=== PATIENT | female | born 1950 | race African-American/Black ===

== ENCOUNTER → 2017-08-15 | Outpatient (CLI) | payer BC ==
[2015-06-18 12:33] VITALS: BP 130/79
--- NOTE | 2017-08-15 09:30 | RAD ---
DATE: 08/15/2017 EXAM: DIGITAL SCREEN LT W/CAD HISTORY: Routine screening. History of right mastectomy . COMPARISON: Previous study from 08/09/2016 This study was interpreted with the benefit of Computerized Aided Detection (CAD). FINDINGS: Breast Density: HETERO The breast parenchyma Is heterogeneously dense, which could reduce sensitivity of mammography. Breast parenchyma level C. The skin and nipples are within normal limits. No suspicious calcifications, spiculated masses or areas of architectural distortion. Benign calcification noted. IMPRESSION: No mammographic evidence of malignancy. Stable mammogram. BI-RADS CATEGORY: 2 BENIGN FINDING(S) RECOMMENDED FOLLOW-UP: 12M 12 MONTH FOLLOW-UP PQRS compliance statement: Patient information was entered into a reminder system with a target due date 08/15/2018 for the next mammogram. Mammography is a sensitive method for finding small breast cancers, but it does not detect them all and is not a substitute for careful clinical examination. A negative mammogram does not negate a clinically suspicious finding and should not result in delay in biopsying a clinically suspicious abnormality. "Our facility is accredited by the [employer] Mammography Program."
== END | disposition home or self-care (01) ==
LOC: MAMMO 08:54
PROVIDERS: ATTEND Family Medicine
DX: Z12.31 Encounter for screening mammogram for malignant neoplasm of breast (principal)
CPT/HCPCS: G0202; 77067

== ENCOUNTER 2017-12-22 05:45 | Emergency (ER) | payer BC, MEDICARE ==
[2017-12-22] MEDS: ONDANSETRON PF 4 MG/2 ML VIAL. IV (06:25)
[2017-12-22] MEDS: IV NORMAL SALINE 500ML BAG 500 ML IV ×2 (06:25→07:07)
[2017-12-22 06:26] LABS: ADD MAN DIFF? NO
[2017-12-22 06:37] LABS: ANION GAP 12 (6-14); BLOOD UREA NITROGEN 19 mg/dL (7-20); BUN/CREATININE RATIO 17 (6-20); CALCIUM 9.4 mg/dL (8.5-10.1); CARBON DIOXIDE 27 mmol/L (21-32); CHLORIDE 101 mmol/L (98-107); CREATININE 1.1 mg/dL (0.6-1.0); GFR 59.6; GLUCOSE 145 mg/dL (70-99); POTASSIUM 3.4 mmol/L (3.5-5.1); SODIUM 140 mmol/L (136-145)
[2017-12-22 06:39] LABS: BASO % 1 % (0-3); EOS % 1 % (0-3); HEMATOCRIT 39.4 % (36.0-47.0); HEMOGLOBIN 12.8 g/dL (12.0-15.5); LYMPH # 1.7 x10^3/uL (1.0-4.8); LYMPH % 40 % (24-48); MEAN CORPUSCULAR HEMOGLOBIN 28 pg (25-35); MEAN CORPUSCULAR HGB CONC 33 g/dL (31-37); MEAN CORPUSCULAR VOLUME 85 fL (79-100); MONO # 0.4 x10^3/uL (0.0-1.1); MONO % 8 % (0-9); NEUT # 2.2 x10^3uL (1.8-7.7); NEUT % 50 % (31-73); PLATELET COUNT 286 x10^3/uL (140-400); RED BLOOD COUNT 4.61 x10^6/uL (3.50-5.40); WHITE BLOOD COUNT 4.4 x10^3/uL (4.0-11.0)
[2017-12-22 06:42] LABS: ALBUMIN 4.1 g/dL (3.4-5.0); ALBUMIN/GLOBULIN RATIO 1.1 (1.0-1.7); ALK PHOS 71 U/L (46-116); ALT (SGPT) 30 U/L (14-59); AST (SGOT) 21 U/L (15-37); TOTAL BILIRUBIN 0.6 mg/dL (0.2-1.0); TOTAL PROTEIN 7.9 g/dL (6.4-8.2)
== END 2017-12-22 07:46 | disposition home or self-care (01) ==
LOC: ER 05:45
DX: R11.2 Nausea with vomiting, unspecified (principal); R19.7 Diarrhea, unspecified; I10 Essential (primary) hypertension; E87.6 Hypokalemia; R10.9 Unspecified abdominal pain; E03.9 Hypothyroidism, unspecified; Z90.11 Acquired absence of right breast and nipple; Z90.710 Acquired absence of both cervix and uterus; Z96.659 Presence of unspecified artificial knee joint
CPT/HCPCS: 36415; 80053; 85025; 96361; 96374; 99284-25; J2405; J7040

== ENCOUNTER 2018-06-07 06:12 | Emergency (ER) | payer BC, MEDICARE ==
[~2018-06-07] VITALS: Ht 162.6 cm; Wt 72.6 kg
[~2018-06-07 06:12] MED LIST: ONDA4TAB7 PO
[2018-06-07 06:41] LABS: BASO # 0.1 x10^3/uL (0.0-0.2); BASO % 2 % (0-3); EOS # 0.1 x10^3/uL (0.0-0.7); EOS % 2 % (0-3); HEMATOCRIT 37.4 % (36.0-47.0); HEMOGLOBIN 12.7 g/dL (12.0-15.5); LYMPH # 2.2 x10^3/uL (1.0-4.8); LYMPH % 53 % (24-48); MEAN CORPUSCULAR HEMOGLOBIN 29 pg (25-35); MEAN CORPUSCULAR HGB CONC 34 g/dL (31-37); MEAN CORPUSCULAR VOLUME 86 fL (79-100); MONO # 0.4 x10^3/uL (0.0-1.1); MONO % 9 % (0-9); NEUT # 1.4 x10^3uL (1.8-7.7); NEUT % 35 % (31-73); PLATELET COUNT 283 x10^3/uL (140-400); RED BLOOD COUNT 4.37 x10^6/uL (3.50-5.40); RED CELL DISTRIBUTION WIDTH 14.6 % (11.5-14.5); WHITE BLOOD COUNT 4.1 x10^3/uL (4.0-11.0)
--- NOTE | 2018-06-07 06:54 | PHYS DOC ---
Past Medical History Past Medical History: Hypertension, Hypothyroid Additional Past Medical Histor: BREAST CANCER 1992, Past Surgical History: Cancer Surgery, Hysterectomy, Knee Replacement, Other Additional Past Surgical Histo: RIGHT MASTECTOMY 1993,WRIST, ANKLE. Alcohol Use: Occasionally Drug Use: None Adult General Chief Complaint Chief Complaint: nausea with a few episodes of vomiting and loose stools. HPI HPI This is a pleasant 67-year-old female with a remote history of uterine cancer status post hysterectomy and a history of breast cancer s/p treatment many years ago who presents today with nausea and vomiting since 5:00 this morning. She denies any sick contacts. She hasn't had about 4-5 nonbilious nonbloody episodes of emesis. She denies fevers or chills. She denies any abdominal pain chest pain or shortness of breath. Review of systems is negative for chest pain shortness of breath fevers chills headache neck stiffness or back pain. All other review of systems is negative unless otherwise noted in history of present illness. ED course: 67-year-old female presenting with nausea and vomiting since 5 AM. On arrival she is afebrile with a normal heart rate. On examination she is well- appearing with a nondistended soft abdomen. Bowel sounds present. No rebound tenderness or guarding. Negative McBurney's point. Negative Norton sign. Remainder the exam is unremarkable as below. Blood work obtained along with IV fluid administration and antiemetics therapy. CT abdomen pelvis obtained. CT shows no acute findings. Lesion in the liver identified. Patient reports seeing this 26 years ago when she was worked up for her uterine cancer. I recommend she follow up with her doctor in 3-4 days and they can get an outpatient MR of the lesion to identify the etiology. Otherwise blood work shows mild increase in creatinine. Patient feels much better on reexamination approximately 10:30 to 1045. Abdomen is soft and nontender. Patient would like to be discharged home. Will discharge patient home to follow-up with PCP in 2-3 days. She will need a repeat creatinine tested at that time. She is told to return if she continues to have vomiting or feels worse.The patient has been examined and was not found to have an emergency medical condition. The patient was then discharged home in stable condition to follow up with their primary care physician over the next 2-3 days. They were to return if their symptoms worsened or if they were concerned for any reason. They were also instructed to return to the emergency department if they were unable to get the recommended and appropriate follow-up. [id number] discharge instructions and return precautions were given. Patient's questions were answered to their satisfaction. Patient is comfortable with plan. Review of Systems Review of Systems SEE ABOVE. Current Medications Current Medications Current Medications Medications (Trade) Dose Ordered Sig/Jyoti Start Time Stop Time Status Last Admin Dose Admin Info (CONTRAST GIVEN -- Rx MONITORING) 1 each PRN DAILY PRN 06/07/18 08:00 06/09/18 07:59 Iohexol (Omnipaque 300 Mg/ml) 75 ml 1X ONCE 06/07/18 07:45 06/07/18 07:47 DC 06/07/18 07:45 75 ML Ondansetron HCl (Zofran) 4 mg 1X ONCE 06/07/18 07:00 06/07/18 07:01 DC 06/07/18 07:04 4 MG Sodium Chloride 500 ml @ 500 mls/hr 1X ONCE 06/07/18 08:00 06/07/18 08:59 DC 06/07/18 08:05 500 MLS/HR Allergies Allergies Allergies Coded Allergies Type Severity Reaction Last Updated Verified No Known Drug Allergies 12/22/17 No Physical Exam Physical Exam SEE ABOVE Constitutional: Well developed, well nourished, no acute distress, non-toxic appearance. HENT: Normocephalic, atraumatic, bilateral external ears normal, oropharynx moist, no oral exudates, nose normal. [] Eyes: PERRLA, EOMI, conjunctiva normal, no discharge. Neck: Normal range of motion, no tenderness, supple, no stridor. Cardiovascular:Heart rate regular rhythm, no murmur Lungs & Thorax: Bilateral breath sounds clear to auscultation [] Abdomen: Bowel sounds normal, soft, no tenderness, no masses, no pulsatile masses. Skin: Warm, dry, no erythema, no rash. [] Back: No tenderness, no CVA tenderness. Extremities: No tenderness, no cyanosis, no clubbing, ROM intact, no edema. Neurologic: Alert and oriented X 3, normal motor function, normal sensory function, no focal deficits noted. [] Psychologic: Affect normal, judgement normal, mood normal. Current Patient Data Vital Signs Vital Signs Date Time Temp Pulse Resp B/P (MAP) Pulse Ox O2 Delivery O2 Flow Rate FiO2 06/07/18 09:56 83 18 134/64 (87) 97 Room Air 06/07/18 06:12 98.0 98.0 Lab Values Laboratory Tests Test 06/07/18 06:29 06/07/18 07:20 06/07/18 08:15 White Blood Count 4.1 x10^3/uL (4.0-11.0) Red Blood Count 4.37 x10^6/uL (3.50-5.40) Hemoglobin 12.7 g/dL (12.0-15.5) Hematocrit 37.4 % (36.0-47.0) Mean Corpuscular Volume 86 fL (79-100) Mean Corpuscular Hemoglobin 29 pg (25-35) Mean Corpuscular Hemoglobin Concent 34 g/dL (31-37) Red Cell Distribution Width 14.6 % (11.5-14.5) H Platelet Count 283 x10^3/uL (140-400) Neutrophils (%) (Auto) 35 % (31-73) Lymphocytes (%) (Auto) 53 % (24-48) H Monocytes (%) (Auto) 9 % (0-9) Eosinophils (%) (Auto) 2 % (0-3) Basophils (%) (Auto) 2 % (0-3) Neutrophils # (Auto) 1.4 x10^3uL (1.8-7.7) L Lymphocytes # (Auto) 2.2 x10^3/uL (1.0-4.8) Monocytes # (Auto) 0.4 x10^3/uL (0.0-1.1) Eosinophils # (Auto) 0.1 x10^3/uL (0.0-0.7) Basophils # (Auto) 0.1 x10^3/uL (0.0-0.2) Sodium Level 142 mmol/L (136-145) Potassium Level 3.5 mmol/L (3.5-5.1) Chloride Level 105 mmol/L (98-107) Carbon Dioxide Level 26 mmol/L (21-32) Anion Gap 11 (6-14) Blood Urea Nitrogen 17 mg/dL (7-20) Creatinine 1.4 mg/dL (0.6-1.0) H Estimated GFR (Cockcroft-Gault) 45.1 BUN/Creatinine Ratio 12 (6-20) Glucose Level 114 mg/dL (70-99) H Calcium Level 10.0 mg/dL (8.5-10.1) Total Bilirubin 0.3 mg/dL (0.2-1.0) Aspartate Amino Transferase (AST) 18 U/L (15-37) Alanine Aminotransferase (ALT) 22 U/L (14-59) Alkaline Phosphatase 74 U/L (46-116) Troponin I Quantitative < 0.017 ng/mL (0.000-0.055) Total Protein 7.1 g/dL (6.4-8.2) Albumin 3.8 g/dL (3.4-5.0) Albumin/Globulin Ratio 1.2 (1.0-1.7) Lipase 172 U/L (73-393) Urine Collection Type Unknown Urine Color Yellow Urine Clarity Clear Urine pH 8.0 Urine Specific [place] 1.020 Urine Protein Negative mg/dL (NEG-TRACE) Urine Glucose (UA) Negative mg/dL (NEG) Urine Ketones (Stick) Negative mg/dL (NEG) Urine Blood Negative (NEG) Urine Nitrite Negative (NEG) Urine Bilirubin Negative (NEG) Urine Urobilinogen Dipstick 1.0 mg/dL (0.2 mg/dL) Urine Leukocyte Esterase Trace (NEG) Urine RBC 0 /HPF (0-2) Urine WBC 1-4 /HPF (0-4) Urine Squamous Epithelial Cells Mod /LPF Urine Amorphous Sediment Present /HPF Urine Bacteria Few /HPF (0-FEW) Laboratory Tests 06/07/18 06:29 Laboratory Tests 06/07/18 07:20 EKG EKG EKG reviewed by myself shows sinus rhythm with regular rate. ST segments are congruent. Not suggestive of ACS.[] Radiology/Procedures Radiology/Procedures [] Course & Med Decision Making Course & Med Decision Making Pertinent Labs and Imaging studies reviewed. (See chart for details) [] Dragon Disclaimer Dragon Disclaimer This electronic medical record was generated, in whole or in part, using a voice recognition dictation system. Departure Departure Impression: Primary Impression: Nausea and vomiting Additional Impression: Diarrhea Disposition: 01 HOME, SELF-CARE Condition: STABLE Referrals: DENNIS GLASER MD (PCP) Additional Instructions: Thank you for allowing us to participate in your care today. Return to the emergency department you have any new or worsening symptoms, or if you are concerned for any reason. Return to emergency department if you have any new or concerning symptoms including but not limited to fever, chills, nausea, vomiting, intractable pain, any new rashes, chest pain, shortness of air , uncontrolled bleeding, difficulty breathing, and/or vision loss. Follow up with your primary care physician within 3 days. Call your Primary Doctor tomorrow and inform them of your visit today. If you do not have a primary care provider we are happy to provide you with a list of our primary care providers contact information. This condition should be evaluated by your primary care physician and any recommended consulting services for continued management within 2-3 days after discharge. If at any time, you are having difficulty getting into your primary care doctor or a specialist, return to the emergency department. Problem Qualifiers RANDY PETE MD Jun 07, 2018 06:54
[2018-06-07] MEDS ORDERED: IV NORMAL SALINE 500ML BAG 500 ML IV ONE ×2 (07:00→08:00)
[2018-06-07] MEDS ORDERED: ONDANSETRON PF 4 MG/2 ML VIAL. IV ONE (07:00)
--- NOTE | 2018-06-07 07:22 | EKG ---
[facility] [address] [place] [address] Test Date: 2018-06-07 Test Time: 06:44:41 Pat Name: VALERI DOUGLAS Department: Room: Gender: F Physiotherapy Aide: : 1950 Requested By: RANDY PETE Order Number: [id number] Reading MD: Tad Perez MD Measurements Intervals [place] Rate: 85 P: 61 AL: 154 QRS: 55 QRSD: 70 T: 46 QT: 342 QTc: 412 Interpretive Statements SINUS RHYTHM Electronically Signed On 06-07-2018 8:12:15 CDT by Tad Perez MD
[2018-06-07 07:43] LABS: ALBUMIN 3.8 g/dL (3.4-5.0); ALBUMIN/GLOBULIN RATIO 1.2 (1.0-1.7); CREATININE 1.4 mg/dL (0.6-1.0); GFR 45.1; POTASSIUM 3.5 mmol/L (3.5-5.1); TOTAL BILIRUBIN 0.3 mg/dL (0.2-1.0); TOTAL PROTEIN 7.1 g/dL (6.4-8.2)
[2018-06-07] MEDS ORDERED: IOHEXOL 300 MG/ML 100ML VIAL. IV ONE (07:45)
[2018-06-07] MEDS ORDERED: CONTRAST GIVEN. MC PRN (08:00)
[2018-06-07 08:32] LABS: BILIRUBIN,URINE NEGATIVE (NEG); CLARITY,URINE CLEAR; COLOR,URINE YELLOW; NITRITE,URINE NEGATIVE (NEG); PROTEIN,URINE NEGATIVE (NEG-TRACE)
[2018-06-07 08:42] LABS: AMORPHOUS SEDIMENT,UR PRESENT /HPF; BACTERIA,URINE FEW /HPF (0-FEW); RBC,URINE 0 /HPF (0-2); SQUAMOUS EPITHELIAL CELL,UR MOD /LPF
[2018-06-07 09:56] VITALS: BP 134/64
--- NOTE | 2018-06-07 10:27 | RAD ---
CT abdomen and pelvis with contrast History: Nausea, abdominal pain Technique: After the administration of intravenous contrast, CT imaging was performed of the abdomen and pelvis. No oral contrast was given as per request. Multiplanar images are reviewed. Exposure: One or more of the following individualized dose reduction techniques were utilized for this examination: 1. Automated exposure control 2. Adjustment of the mA and/or kV according to patient size 3. Use of iterative reconstruction technique. Contrast: 60 cc Omnipaque 300 Comparison: None Findings: There is no abnormality of the limited visualized lung bases. There is a 1.1 cm hypodense lesion posteriorly of the right lobe of the liver closer to the dome, density measurements not of a simple cyst at 50 Hounsfield units. Gallbladder is present without obvious intraluminal abnormality by CT. No focal abnormality is identified of the pancreas or spleen. There is no adrenal nodularity. Both kidneys enhance, no hydronephrosis. Evaluation of bowel is limited without oral contrast. Bowel is not significantly dilated. There is some stool retention in segments of the colon greatest of the right through transverse colon. Normal appendix is visualized. There is no free air or free fluid. There is minimal fat in the inguinal canals greater on the left, no bowel. There is more advanced degenerative disc disease L3-4 and to a somewhat lesser degree at L4-5 with spondylosis greatest L3-4. There is probable mild lateral recess stenosis bilaterally at L3-4. There is at least mild neural foramina compromise on the right at L3-4 and L4-5 and on the left at L3-4. Impression: 1. There is no CT evidence of acute appendicitis or evidence of small bowel obstruction. There is retained stool in segments of the colon. 2. There is indeterminate hypodense lesion of the right lobe of the liver closer to the dome, more accurately characterized with nonemergent MR. Electronically signed by: Navid Bynum MD (06/07/2018 10:23 AM) [id number]
== END 2018-06-07 11:10 | disposition home or self-care (01) ==
LOC: ER 06:12
DX: R11.2 Nausea with vomiting, unspecified (principal); R19.7 Diarrhea, unspecified; I10 Essential (primary) hypertension; E03.9 Hypothyroidism, unspecified; Z90.710 Acquired absence of both cervix and uterus; Z96.659 Presence of unspecified artificial knee joint; Z90.11 Acquired absence of right breast and nipple
CPT/HCPCS: 36415; 74177; 80053; 81001; 83690; 84484; 85025; 87086; 93005; 96361; 96374; 99285; J2405; J7040; Q9967; 99284

== ENCOUNTER 2019-12-25 04:31 | Emergency (ER) | payer BC, MEDICARE ==
[~2019-12-25] VITALS: Ht 162.6 cm; Wt 70.5 kg
[2019-12-25] MEDS ORDERED: FAMOTIDINE 20 MG/2 ML VIAL IVP ONE (04:45)
[2019-12-25] MEDS ORDERED: ONDANSETRON PF 4 MG/2 ML VIAL. IVP ONE ×2 (04:45→06:00)
[2019-12-25] MEDS ORDERED: IV NORMAL SALINE 1000ML BAG 1,000 ML IV ONE ×2 (04:45→06:45)
--- NOTE | 2019-12-25 04:59 | PHYS DOC ---
Past Medical History Past Medical History: Cancer (Breast), Hypertension, Hypothyroid (MARSHA OLIVA DO) Past Surgical History: Cancer Surgery, Hysterectomy, Knee Replacement, Other Additional Past Surgical Histo: RIGHT MASTECTOMY 1993,WRIST, ANKLE. TRAM FLAP (MARSHA OLIVA DO) Smoking Status: Never Smoker Alcohol Use: Occasionally Drug Use: None (MARSHA OLIVA DO) Adult General Chief Complaint Chief Complaint: ABDOMINAL PAIN HPI HPI 69-year-old female presents with several week history of abdominal pain which has been worse primarily to left lower quadrant. Reports some associated nausea and vomiting. Denies constipation or diarrhea. Patient was seen by her PCP yesterday and thought to have diverticulitis. Patient was started on empiric antibiotics. Patient reports this morning the pain was more significant and therefore presents to the ER for evaluation. Denies fever or chills. Denies known sick contacts. Denies trauma. Patient denies history of diverticulitis. Reports last colonoscopy was in 2010 and was "normal". (MARSHA OLIVA DO) Review of Systems Review of Systems Constitutional: Denies fever or chills; reports malaise Eyes: Denies redness or eye pain HENT: Denies nasal congestion or sore throat Respiratory: Denies cough or shortness of breath Cardiovascular: Denies chest pain or palpitations GI: Reports abdominal pain, nausea, and vomiting; denies diarrhea or constipation : Denies dysuria or hematuria Musculoskeletal: Denies back pain or joint pain Integument: Denies rash or skin lesions Neurologic: Denies headache, focal weakness or sensory changes Complete systems were reviewed and found to be within normal limits, except as documented in this note. (MARSHA OLIVA DO) Current Medications Current Medications Current Medications Medications (Trade) Dose Ordered Sig/Jyoti Start Time Stop Time Status Last Admin Dose Admin Famotidine (Pepcid Vial) 20 mg 1X ONCE 12/25/19 04:45 12/25/19 04:46 DC 12/25/19 05:09 20 MG Famotidine (Pepcid) 20 mg 1X ONCE 12/25/19 08:00 12/25/19 08:01 DC 12/25/19 07:59 20 MG Fentanyl Citrate (Fentanyl 2ml Vial) 50 mcg 1X ONCE 12/25/19 05:00 12/25/19 05:02 DC 12/25/19 05:35 50 MCG Metoclopramide HCl (Reglan Vial) 10 mg 1X ONCE 12/25/19 08:15 12/25/19 08:16 DC 12/25/19 08:13 10 MG Multi-Ingredient Mouthwash/Gargle (Gi Cocktail) 20 ml 1X ONCE 12/25/19 08:00 12/25/19 08:01 DC Ondansetron HCl (Zofran) 4 mg 1X ONCE 12/25/19 06:00 12/25/19 06:03 DC 12/25/19 06:04 4 MG Potassium Chloride (Klor-Con) 40 meq 1X ONCE 12/25/19 07:00 12/25/19 07:01 DC 12/25/19 07:05 40 MEQ Sodium Chloride 1,000 ml @ 1,000 mls/hr 1X ONCE 12/25/19 06:45 12/25/19 07:44 DC 12/25/19 07:05 1,000 MLS/HR (TESS DOHERTY DO) Allergies Allergies Allergies Coded Allergies Type Severity Reaction Last Updated Verified No Known Drug Allergies 12/22/17 No (TESS DOHERTY DO) Physical Exam Physical Exam Constitutional: Well developed, well nourished, no acute distress, non-toxic appearance HENT: Normocephalic, atraumatic, oropharynx moist Eyes: Conjunctiva normal, no discharge Neck: Normal range of motion, no tenderness, supple Cardiovascular: Heart rate normal, regular rhythm Lungs & Thorax: Bilateral breath sounds clear to auscultation, no wheezing Abdomen: Soft, LLQ tenderness, distention, no rebound tenderness, no guarding Skin: Warm, dry, no erythema, no rash Back: No tenderness, no CVA tenderness Extremities: No tenderness, ROM intact, no edema Neurologic: Alert and oriented X 3, no focal deficits noted Psychologic: Affect normal, judgment normal (MARSHA OLIVA DO) Current Patient Data Vital Signs Vital Signs Date Time Temp Pulse Resp B/P (MAP) Pulse Ox O2 Delivery O2 Flow Rate FiO2 12/25/19 06:44 70 20 152/60 (90) 99 Room Air 12/25/19 04:36 98.7 98.7 (TESS DOHERTY DO) Lab Values Laboratory Tests Test 12/25/19 04:55 12/25/19 05:00 Urine Collection Type Unknown Urine Color Yellow Urine Clarity Clear Urine pH 7.0 (<5.0-8.0) Urine Specific Mcwilliams 1.015 (1.000-1.030) Urine Protein Negative mg/dL (NEG-TRACE) Urine Glucose (UA) Negative mg/dL (NEG) Urine Ketones (Stick) Negative mg/dL (NEG) Urine Blood Negative (NEG) Urine Nitrite Negative (NEG) Urine Bilirubin Negative (NEG) Urine Urobilinogen Dipstick 0.2 mg/dL (0.2 mg/dL) Urine Leukocyte Esterase Small (NEG) Urine RBC 0 /HPF (0-2) Urine WBC 5-10 /HPF (0-4) Urine Squamous Epithelial Cells Mod /LPF Urine Bacteria Few /HPF (0-FEW) Urine Mucus Slight /LPF White Blood Count 4.1 x10^3/uL (4.0-11.0) Red Blood Count 4.66 x10^6/uL (3.50-5.40) Hemoglobin 12.9 g/dL (12.0-15.5) Hematocrit 40.0 % (36.0-47.0) Mean Corpuscular Volume 86 fL (79-100) Mean Corpuscular Hemoglobin 28 pg (25-35) Mean Corpuscular Hemoglobin Concent 32 g/dL (31-37) Red Cell Distribution Width 14.5 % (11.5-14.5) Platelet Count 237 x10^3/uL (140-400) Neutrophils (%) (Auto) 57 % (31-73) Lymphocytes (%) (Auto) 31 % (24-48) Monocytes (%) (Auto) 10 % (0-9) H Eosinophils (%) (Auto) 1 % (0-3) Basophils (%) (Auto) 1 % (0-3) Neutrophils # (Auto) 2.3 x10^3/uL (1.8-7.7) Lymphocytes # (Auto) 1.3 x10^3/uL (1.0-4.8) Monocytes # (Auto) 0.4 x10^3/uL (0.0-1.1) Eosinophils # (Auto) 0.0 x10^3/uL (0.0-0.7) Basophils # (Auto) 0.0 x10^3/uL (0.0-0.2) Prothrombin Time 13.2 SEC (11.7-14.0) Prothrombin Time INR 1.0 (0.8-1.1) Activated Partial Thromboplast Time 19 SEC (24-38) L Sodium Level 136 mmol/L (136-145) Potassium Level 3.1 mmol/L (3.5-5.1) L Chloride Level 99 mmol/L (98-107) Carbon Dioxide Level 25 mmol/L (21-32) Anion Gap 12 (6-14) Blood Urea Nitrogen 14 mg/dL (7-20) Creatinine 1.5 mg/dL (0.6-1.0) H Estimated GFR (Cockcroft-Gault) 41.4 BUN/Creatinine Ratio 9 (6-20) Glucose Level 122 mg/dL (70-99) H Lactic Acid Level 2.1 mmol/L (0.4-2.0) H Calcium Level 9.4 mg/dL (8.5-10.1) Magnesium Level 1.8 mg/dL (1.8-2.4) Total Bilirubin 0.5 mg/dL (0.2-1.0) Aspartate Amino Transferase (AST) 19 U/L (15-37) Alanine Aminotransferase (ALT) 19 U/L (14-59) Alkaline Phosphatase 49 U/L (46-116) Total Protein 7.2 g/dL (6.4-8.2) Albumin 4.0 g/dL (3.4-5.0) Albumin/Globulin Ratio 1.3 (1.0-1.7) Lipase 110 U/L (73-393) Laboratory Tests 12/25/19 05:00 Laboratory Tests 12/25/19 05:00 (TESS DOHERTY DO) Lab Values Laboratory Tests Test 12/25/19 04:55 12/25/19 05:00 Urine Collection Type Unknown Urine Color Yellow Urine Clarity Clear Urine pH 7.0 (<5.0-8.0) Urine Specific Mcwilliams 1.015 (1.000-1.030) Urine Protein Negative mg/dL (NEG-TRACE) Urine Glucose (UA) Negative mg/dL (NEG) Urine Ketones (Stick) Negative mg/dL (NEG) Urine Blood Negative (NEG) Urine Nitrite Negative (NEG) Urine Bilirubin Negative (NEG) Urine Urobilinogen Dipstick 0.2 mg/dL (0.2 mg/dL) Urine Leukocyte Esterase Small (NEG) Urine RBC 0 /HPF (0-2) Urine WBC 5-10 /HPF (0-4) Urine Squamous Epithelial Cells Mod /LPF Urine Bacteria Few /HPF (0-FEW) Urine Mucus Slight /LPF White Blood Count 4.1 x10^3/uL (4.0-11.0) Red Blood Count 4.66 x10^6/uL (3.50-5.40) Hemoglobin 12.9 g/dL (12.0-15.5) Hematocrit 40.0 % (36.0-47.0) Mean Corpuscular Volume 86 fL (79-100) Mean Corpuscular Hemoglobin 28 pg (25-35) Mean Corpuscular Hemoglobin Concent 32 g/dL (31-37) Red Cell Distribution Width 14.5 % (11.5-14.5) Platelet Count 237 x10^3/uL (140-400) Neutrophils (%) (Auto) 57 % (31-73) Lymphocytes (%) (Auto) 31 % (24-48) Monocytes (%) (Auto) 10 % (0-9) H Eosinophils (%) (Auto) 1 % (0-3) Basophils (%) (Auto) 1 % (0-3) Neutrophils # (Auto) 2.3 x10^3/uL (1.8-7.7) Lymphocytes # (Auto) 1.3 x10^3/uL (1.0-4.8) Monocytes # (Auto) 0.4 x10^3/uL (0.0-1.1) Eosinophils # (Auto) 0.0 x10^3/uL (0.0-0.7) Basophils # (Auto) 0.0 x10^3/uL (0.0-0.2) Sodium Level 136 mmol/L (136-145) Potassium Level 3.1 mmol/L (3.5-5.1) L Chloride Level 99 mmol/L (98-107) Carbon Dioxide Level 25 mmol/L (21-32) Anion Gap 12 (6-14) Blood Urea Nitrogen 14 mg/dL (7-20) Creatinine 1.5 mg/dL (0.6-1.0) H Estimated GFR (Cockcroft-Gault) 41.4 BUN/Creatinine Ratio 9 (6-20) Glucose Level 122 mg/dL (70-99) H Lactic Acid Level 2.1 mmol/L (0.4-2.0) H Calcium Level 9.4 mg/dL (8.5-10.1) Magnesium Level 1.8 mg/dL (1.8-2.4) Total Bilirubin 0.5 mg/dL (0.2-1.0) Aspartate Amino Transferase (AST) 19 U/L (15-37) Alanine Aminotransferase (ALT) 19 U/L (14-59) Alkaline Phosphatase 49 U/L (46-116) Total Protein 7.2 g/dL (6.4-8.2) Albumin 4.0 g/dL (3.4-5.0) Albumin/Globulin Ratio 1.3 (1.0-1.7) Lipase 110 U/L (73-393) Laboratory Tests 12/25/19 05:00 Laboratory Tests 12/25/19 05:00 (MARSHA OLIVA DO) EKG EKG [] (MARSHA OLIVA DO) Radiology/Procedures Radiology/Procedures [] (MARSHA OLIVA DO) Radiology/Procedures [facility] [address] [place] [address] IMAGING REPORT Signed PATIENT: VALERI DOUGLAS ACCOUNT: [id number] : 1950 LOCATION: ER AGE: 69 SEX: F EXAM STATUS: REG ER ORD. PHYSICIAN: MARSHA OLIVA DO REASON: LLQ abdominal pain, eval for acute diverticulitis PROCEDURE: CT ABDOMEN PELVIS WO CONTRAST EXAM: CT ABDOMEN/PELVIS WITHOUT CONTRAST. HISTORY: left lower quadrant pain. TECHNIQUE: Computed tomography of the abdomen and pelvis was performed without intravenous contrast. COMPARISON: 06/07/2018. FINDINGS: Images of the lung bases reveal minimal atelectasis. Bone windows reveal no suspicious lesions. A 1.3 cm hypoattenuating focus in hepatic segment 7 is stable chronically and likely benign. The gallbladder, pancreas, adrenal glands and spleen are unremarkable. There are no pathologically enlarged lymph nodes. The appendix is not inflamed. There is no small bowel obstruction. The uterus is surgically absent. There is no inflammation in the left lower quadrant or elsewhere. There are no renal or ureteral calculi. There is no hydronephrosis a surgical clip is noted along the left lower quadrant anterior abdominal wall. IMPRESSION: 1. No cause for pain is identified. Electronically signed by: Nichole Mondragon MD (12/25/2019 8:36 AM) [facility] DICTATED and SIGNED BY: EMERSON MONDRAGON MD DATE: 12/25/19 0836 (TESS DOHERTY DO) Course & Med Decision Making Course & Med Decision Making Pertinent Labs and Imaging studies reviewed. (See chart for details) Patient presents with left lower quadrant abdominal pain with distention that has been ongoing for the past week. Patient seen by PCP and started on antibiotics for presumed diverticulitis. Patient denies history. Afebrile. Symptomatic treatment provided. IV fluid hydration given. Labs obtained and posted to chart. Hypokalemia noted. Lactic acid elevated. Patient does not met SIRS criteria. CT abdomen/pelvis pending. Sign out given to Dr. Doherty for further evaluation and final disposition. Discussed current findings and plan with patient, who acknowledges understanding and agreement. (MARSHA OLIVA DO) Course & Med Decision Making Patient is a 69-year-old female who was evaluated in the ER due to abdominal pain, she was evaluated her doctor yesterday, diagnosed with possible diverticulitis, on Bactrim and Flagyl combination. Patient continued to have pain so she came into ER today for evaluation. Her lab will come back okay, CT scan her abdomen pelvis did not show any acute problem, no evidence of diverticulitis. Her lactic acidosis 2.1 however she had no fever, her blood pressure was okay. This physician examined patient and found that her pain is mostly in the epigastric area. Patient will be treated for gastritis, discharged home with Prilosec and Carafate. recommended to stop taking it Bactrim and Flagyl. Patient will need follow-up with her family doctor for referral to GI specialist for further evaluation and treatment. Patient is amenable to plan of care. (TESS DOHERTY DO) Dragon Disclaimer Dragon Disclaimer This electronic medical record was generated, in whole or in part, using a voice recognition dictation system. (MARSHA OLIVA DO) Departure Departure Impression: Primary Impression: Abdominal pain Additional Impressions: Hypokalemia Lactic acidosis Gastritis Disposition: HOME, SELF-CARE Condition: IMPROVED Referrals: DENNIS GLASER MD (PCP) PLEASE FOLLOW UP WITH YOUR DOCTOR FOR A REFERRAL TO GI specialist for further evaluation and treatment Patient Instructions: Abdominal Pain, Gastritis, Adult Additional Instructions: Thank you for visiting our Emergency Department. We appreciate you trusting us with your care. If any additional problems come up don't hesitate to return to visit us. Please follow up with your primary care provider so they can plan additional care if needed and know about the problem that you had. If symptoms worsen come back to the Emergency Department. Any concerning symptoms that start such as chest pain, shortness of air, weakness or numbness on one side of the body, running high fevers or any other concerning symptoms return to the ER. Scripts Sucralfate (CARAFATE) 1 Gm Tablet 1 TAB PO QID for 21 Days, #84 TAB 0 Refills Prov: TESS DOHERTY DO 12/25/19 Omeprazole Magnesium (PRILOSEC OTC) 20 Mg Tablet.dr 20 MG PO DAILY for 30 Days, #30 TAB Prov: TESS DOHERTY DO 12/25/19 Problem Qualifiers Primary Impression: Abdominal pain Abdominal location: unspecified location Qualified Codes: R10.9 - U nspecified abdominal pain MARSHA OLIVA DO Dec 25, 2019 04:59 TESS DOHERTY DO Dec 25, 2019 08:45
[2019-12-25] MEDS ORDERED: fentaNYL PF VIAL 100 MCG/2 ML VIAL IV ONE (05:00)
[2019-12-25 05:01] LABS: BILIRUBIN,URINE NEGATIVE (NEG); CLARITY,URINE CLEAR; COLOR,URINE YELLOW; NITRITE,URINE NEGATIVE (NEG); PROTEIN,URINE NEGATIVE (NEG-TRACE); UROBILINOGEN,URINE 0.2 mg/dL (0.2 mg/dL)
[2019-12-25 05:05] LABS: SQUAMOUS EPITHELIAL CELL,UR MOD /LPF
[2019-12-25 05:06] LABS: BACTERIA,URINE FEW /HPF (0-FEW); RBC,URINE 0 /HPF (0-2)
[2019-12-25 05:17] LABS: BASO % 1 % (0-3); EOS % 1 % (0-3); HEMOGLOBIN 12.9 g/dL (12.0-15.5); LYMPH # 1.3 x10^3/uL (1.0-4.8); LYMPH % 31 % (24-48); MEAN CORPUSCULAR HEMOGLOBIN 28 pg (25-35); MEAN CORPUSCULAR HGB CONC 32 g/dL (31-37); MEAN CORPUSCULAR VOLUME 86 fL (79-100); MONO # 0.4 x10^3/uL (0.0-1.1); MONO % 10 % (0-9); NEUT # 2.3 x10^3/uL (1.8-7.7); NEUT % 57 % (31-73); PLATELET COUNT 237 x10^3/uL (140-400); RED BLOOD COUNT 4.66 x10^6/uL (3.50-5.40); RED CELL DISTRIBUTION WIDTH 14.5 % (11.5-14.5); WHITE BLOOD COUNT 4.1 x10^3/uL (4.0-11.0)
[2019-12-25 05:27] LABS: CALCIUM 9.4 mg/dL (8.5-10.1); CREATININE 1.5 mg/dL (0.6-1.0); GFR 41.4; POTASSIUM 3.1 mmol/L (3.5-5.1)
[2019-12-25 05:35] LABS: ALBUMIN/GLOBULIN RATIO 1.3 (1.0-1.7); MAGNESIUM 1.8 mg/dL (1.8-2.4); PROTHROMBIN TIME PATIENT 13.2 SEC (11.7-14.0); TOTAL BILIRUBIN 0.5 mg/dL (0.2-1.0); TOTAL PROTEIN 7.2 g/dL (6.4-8.2)
[2019-12-25] MEDS ORDERED: POTASSIUM CHLORIDE 10 MEQ TABLET.ER. PO ONE (07:00)
[2019-12-25] MEDS: LIDO:MAALOX 1:1 20 ML SINGLE DOSE. SWSW ONE ×2 (07:59→08:00)
[2019-12-25] MEDS ORDERED: FAMOTIDINE 20 MG TABLET. PO ONE (08:00)
[2019-12-25 08:14] VITALS: BP 137/63
[2019-12-25] MEDS ORDERED: METOCLOPRAMIDE HCL 10 MG/2 ML VIAL. IVP ONE (08:15)
--- NOTE | 2019-12-25 08:39 | RAD ---
EXAM: CT ABDOMEN/PELVIS WITHOUT CONTRAST. HISTORY: left lower quadrant pain. TECHNIQUE: Computed tomography of the abdomen and pelvis was performed without intravenous contrast. COMPARISON: 06/07/2018. FINDINGS: Images of the lung bases reveal minimal atelectasis. Bone windows reveal no suspicious lesions. A 1.3 cm hypoattenuating focus in hepatic segment 7 is stable chronically and likely benign. The gallbladder, pancreas, adrenal glands and spleen are unremarkable. There are no pathologically enlarged lymph nodes. The appendix is not inflamed. There is no small bowel obstruction. The uterus is surgically absent. There is no inflammation in the left lower quadrant or elsewhere. There are no renal or ureteral calculi. There is no hydronephrosis a surgical clip is noted along the left lower quadrant anterior abdominal wall. IMPRESSION: 1. No cause for pain is identified. Electronically signed by: Nichole Mondragon MD (12/25/2019 8:36 AM) [facility]
[2019-12-25] MEDS ORDERED: OMEP20TA63 PO (08:45)
[2019-12-25] MEDS ORDERED: SUCR1TAB35 PO (08:45)
== END 2019-12-25 08:54 | disposition home or self-care (01) ==
LOC: ER 04:31
DX: K29.70 Gastritis, unspecified, without bleeding (principal); R10.32 Left lower quadrant pain; R11.2 Nausea with vomiting, unspecified; E87.6 Hypokalemia; E87.2 Acidosis; I10 Essential (primary) hypertension; E03.9 Hypothyroidism, unspecified; Z85.3 Personal history of malignant neoplasm of breast; Z90.710 Acquired absence of both cervix and uterus; Z98.890 Other specified postprocedural states
CPT/HCPCS: 36415; 74176; 80053; 81001; 83605; 83690; 83735; 85025; 85610; 85730; 87086; 96361; 96374; 96375; 96376; 99285; J2405; J2765; J3010; J3490; J7030

== ENCOUNTER → 2020-08-04 | Outpatient (CLI) | payer BC ==
[~2020-08-04] MED LIST changes: +OMEP20TA63 PO; +SUCR1TAB35 PO
--- NOTE | 2020-08-04 11:17 | RAD ---
DATE: 08/04/2020 7:55 AM EXAM: MAMMO VIJI SCREEN LT HISTORY: screening. Personal history of right mastectomy 1989. COMPARISON: 08/18/2019, 08/16/2018, 08/15/2017 CC and MLO views of the left breast were performed. Breast tomosynthesis was performed in CC and MLO projections. This study was interpreted with the benefit of Computerized Aided Detection (CAD). FINDINGS: Breast Density: HETERO The breast parenchyma Is heterogeneously dense, which could reduce sensitivity of mammography. Breast parenchyma level C No suspicious masses, microcalcifications or architectural distortion is present to suggest malignancy in the breast. IMPRESSION: No mammographic evidence of malignancy. BI-RADS CATEGORY: 1 NEGATIVE RECOMMENDED FOLLOW-UP: 12M 12 MONTH FOLLOW-UP Annual screening mammography is recommended, unless clinically indicated sooner based on symptoms or change in physical exam. PQRS compliance statement: Patient information was entered into a reminder system with a target due date for the next mammogram. Mammography is a sensitive method for finding small breast cancers, but it does not detect them all and is not a substitute for careful clinical examination. A negative mammogram does not negate a clinically suspicious finding and should not result in delay in biopsying a clinically suspicious abnormality. "Our facility is accredited by the [employer] Mammography Program."
== END ==
LOC: MAMMO 07:38
PROVIDERS: ATTEND Family Medicine
DX: Z12.31 Encounter for screening mammogram for malignant neoplasm of breast (principal); Z90.11 Acquired absence of right breast and nipple
CPT/HCPCS: 77063; 77067

== ENCOUNTER → 2021-03-05 | Day surgery (SDC) | payer BC, MEDICARE ==
[~2021-03-05] VITALS: Ht 162.6 cm; Wt 72.0 kg
[~2021-03-05] MED LIST changes: +IV RINGERS,LACTATED 1000ML 1,000 ML IV SCH; +LEVO75TA5 PO; +LIDOCAINE 2% PF 5 ML VIAL. ONE; +LISI1TAB20 PO; +PRAV40TA2 PO; +PROPOFOL 10 MG/ML (20ML) VIAL. IV ONE
[2021-03-05 09:34] VITALS: BP 161/72
[2021-03-05 14:40] VITALS: BP 157/68
--- NOTE | 2021-03-05 14:47 | PREOP HP ---
DATE OF SERVICE: 03/05/2021 PREOPERATIVE HISTORY AND PHYSICAL DATE OF PROCEDURE: 03/05/2012 REQUESTING PHYSICIAN: Casie Vela. PRIMARY CARE PHYSICIAN: Casie Vela. REASON FOR PROCEDURE: Reflux and colon cancer screening. HISTORY OF PRESENT ILLNESS: This patient is here for reflux and colon cancer screening. ALLERGIES: No known drug allergies. MEDICATIONS: MAR reviewed. REVIEW OF SYSTEMS: A 13-point review of systems is done and is positive as per HPI, otherwise negative. PHYSICAL EXAMINATION: VITAL SIGNS: Afebrile. Vital signs are stable. GENERAL: She is a well-developed, well-nourished -[place] female in no apparent distress. HEENT: Oropharynx is clear. CARDIOVASCULAR: S1, S2. LUNGS: Clear. ABDOMEN: Active bowel sounds, soft, nontender, nondistended. EXTREMITIES: No edema. NEUROLOGIC: Awake, alert, oriented x3. ASSESSMENT AND PLAN: 1. Reflux, upper endoscopy. 2. Colon cancer screening, colonoscopy. CE/SWATHI DR: Elis TID: [id number]
--- NOTE | 2021-03-09 19:18 | PATHOLOGY ---
[facility] Accession Number: [id number] . 01 Material submitted: . PART A: small bowel - SMALL BOWEL BIOPSY PART B: stomach - ANTRUM AND BODY BIOPSY. Modifiers: ANTRUM, body PART C: esophagus - DISTAL ESOPHAGUS BIOPSY. Modifiers: distal . 01 Clinical history: . EGD/COLONOSCOPY SCREEN/ HISTORY OF GASTRIC POLYPS . 02 Diagnosis: A. Small bowel biopsies: - No significant pathologic abnormalities. . B. Gastric biopsies, gastric body and gastric antrum: - Chronic gastritis, mild. . C. Esophageal biopsies, distal esophagus: - Segments of gastric mucosa showing moderate chronic inflammation. . (JPM:mml; 03/09/2021) [facility] 03/09/2021 1101 Local . 02 Comment: Sections of the small bowel biopsy reveal segments of duodenal and small intestine mucosa. Where best oriented, the mucosal villi show no sprue-like changes or significant inflammatory changes. . Sections of the gastric biopsy reveal segments of gastric antral mucosa showing congestion and mild chronic inflammation. A properly-controlled immunoperoxidase stain for Helicobacter is negative for Helicobacter organisms. . Sections of the distal esophageal biopsy reveal segments of gastric mucosa showing moderate chronic inflammation. There is no squamous esophageal mucosa. There is no specialized columnar epithelium diagnostic of Cobb's change. . Special stain: Immunoperoxidase stain for Helicobacter on B1 . (JPM:mml; 03/09/2021) . 02 Electronically signed: . Xander Knox MD, Pathologist NPI- [id number] . 01 Gross description: . A. Received in formalin labeled "Glenys Patterson, small bowel biopsy" are multiple camarillo-brown soft tissue fragments measuring in aggregate 0.9 x 0.7 x 0.3 cm. The specimen is submitted entirely in A1. . B. Received in formalin labeled "Glenys Patterson antrum and body biopsy" are multiple camarillo-brown soft tissue fragments measuring in aggregate 1.4 x 0.6 x 0.2 cm. The specimen is submitted entirely in B1. . C. Received in formalin labeled "Glenys Patterson distal esophagus biopsy" are multiple camarillo-brown soft tissue fragments measuring in aggregate 0.9 x 0.4 x 0.2 cm. The specimen is submitted entirely in C1. ([facility]; 03/06/2021) . GZA/GZA 03/06/2021 0935 Local . 02 Pathologist provided ICD-10: K29.50, K20.90 . 02 CPT . 407730, 570861, 108404, X02738 Specimen Comment: A courtesy copy of this report has been sent to [phone], [phone] Specimen Comment: [id number] Specimen Comment: Report sent to / DR GLASER Performed at: 01 [facility] [address], [place] [id number] MD Pedro Meredith MD Phone: [phone] Performed at: 02 [facility] [address] [place], [place] [id number] MD Xander Knox MD Phone: [phone]
== END | disposition home or self-care (01) ==
LOC: SURG 08:56
PROVIDERS: ATTEND Internal Medicine Gastroenterology
DX: R10.9 Unspecified abdominal pain (principal); K21.00 Gastro-esophageal reflux disease with esophagitis, without bleeding; K31.89 Other diseases of stomach and duodenum; K29.50 Unspecified chronic gastritis without bleeding; K64.0 First degree hemorrhoids; K63.89 Other specified diseases of intestine; I10 Essential (primary) hypertension; E78.00 Pure hypercholesterolemia, unspecified; Z85.3 Personal history of malignant neoplasm of breast; Z90.710 Acquired absence of both cervix and uterus; Z98.890 Other specified postprocedural states; Z79.899 Other long term (current) drug therapy; Z72.89 Other problems related to lifestyle
CPT/HCPCS: 43239; 45378; J2704

== ENCOUNTER → 2021-08-05 | Outpatient (CLI) | payer BC, MEDICARE ==
[2021-03-05 14:40] VITALS: BP 157/68
[~2021-08-05] MED LIST changes: -IV RINGERS,LACTATED 1000ML 1,000 ML IV SCH; -LIDOCAINE 2% PF 5 ML VIAL. ONE; -LISI1TAB20 PO; +LISI1TAB39 PO; -PROPOFOL 10 MG/ML (20ML) VIAL. IV ONE
--- NOTE | 2021-08-05 14:44 | RAD ---
UNILATERAL LEFT DIGITAL SCREENING 2-D AND 3-D MAMMOGRAM INDICATION: Routine screening. History of right mastectomy. COMPARISON: August 04, 2020, August 18, 2019, August 16, 2018 and August 15, 2017. Interpretation was made using CAD. FINDINGS: Breast Density: The breasts are heterogeneously dense, which may obscure small masses. LEFT BREAST: An asymmetry is seen in the upper outer quadrant on the MLO views, 9 cm from the nipple. The asymmetry is best seen on the 3-D views and is slightly medial to a coarse calcification. There are no suspicious calcifications or areas of distortion. IMPRESSION: 1. Indeterminate asymmetry. Additional imaging is recommended with spot compression CC, spot balaji lara MLO and full-field true lateral views. Given that this is predominantly a 3-D finding, spot comp ression 3D views would be best to exclude malignancy. A left breast ultrasound may also be necessary. ASSESSMENT: BI-RADS 0. Incomplete assessment. Additional imaging is necessary. RECOMMENDATION: Left Diagnostic Mammogram and Possible Left Breast Ultrasound. The facility will notify the patient of the results via mail. Patient information will be entered int o the mammography reminder system with a target recall date for the next mammogram. A reminder letter will be generated by the facility. Electronically signed by: Radha Lewis MD (08/05/2021 2:42 PM) [id number]
== END ==
LOC: MAMMO 07:32
PROVIDERS: ATTEND Family Medicine
DX: Z12.31 Encounter for screening mammogram for malignant neoplasm of breast (principal)
CPT/HCPCS: 77063; 77067